=== PATIENT | male | born 1995 | race Caucasian/White ===

== ENCOUNTER 2017-05-21 08:05 | Day surgery (SDC) | payer OTHER ==
[~2017-05-21 08:05] MED LIST: Buffered Lidocaine 0.9% SYRIN* 5 ML/SYR SYRINGE INTRADERM ONE; Sodium Citrate/Citric Acid* 15 ML UDC PO ONE
[2017-05-21] MEDS ORDERED: Sodium Citrate/Citric Acid* 15 ML UDC ONE (08:19)
[2017-05-21] MEDS ORDERED: ceFAZolin 2 GM PREMIX (*) 50 ML IVPB ONE (08:19)
[2017-05-21] MEDS ORDERED: Buffered Lidocaine 0.9% SYRIN* 5 ML/SYR SYRINGE ONE (08:19)
[2017-05-21] MEDS ORDERED: EPINEPHrine AMP 1 MG/ML ONE (09:36)
[2017-05-21] MEDS ORDERED: Lidocaine 1.5% EPI 1:200,000* 30 ML SDV ONE (09:36)
[2017-05-21] MEDS ORDERED: fentaNYL* 50 MCG/ML 2 ML VIAL (100 MCG VIAL) ONE ×2 (09:47→11:43)
[2017-05-21] MEDS ORDERED: Midazolam* 1 MG/ML 2 ML VIAL (2 MG) ONE (09:47)
[2017-05-21] MEDS ORDERED: Lidocaine 2% PF * 5 ML VIAL ONE (09:48)
[2017-05-21] MEDS ORDERED: Propofol* 10 MG/ML 20 ML BTL IV PUSH ONE (09:48)
[2017-05-21] MEDS ORDERED: Ketorolac INJ* 30 MG/ML 1 ML VIAL ONE (09:48)
[2017-05-21] MEDS ORDERED: Ondansetron INJ* 2 MG/ML VIAL IV PRN (11:57)
[2017-05-21] MEDS ORDERED: fentaNYL* 50 MCG/ML 2 ML VIAL (100 MCG VIAL) IV PRN (11:57)
[2017-05-21] MEDS ORDERED: oxyCODONE/Acetamin 5/325 MG* TAB ONE (12:53)
[2017-05-21 13:28] VITALS: BP 148/76
--- NOTE | 2017-05-22 09:21 | OP ---
OPERATIVE REPORT: DATE OF OPERATION: 05/21/17 DATE OF : 89 SURGEON: Teo Pradhan MD INTEGRATION SOFTWARE DEVELOPER: ANN MARIE Trujillo A physician trading assistant was required for the duration of the procedure for knee manipulation and instr umentation. ANESTHESIOLOGIST: Gaudencio Carlton MD ANESTHESIA: General anesthesia, local anesthesia, 30 cc of lidocaine 1.5% with epinephrine. PRE-OP DIAGNOSIS: Left knee lateral meniscus tear. POST-OP DIAGNOSES: 1. Left knee lateral meniscus tear. 2. Left knee medial plica. OPERATIVE PROCEDURE: 1. Left knee arthroscopic partial lateral meniscectomy. 2. Left knee arthroscopic synovectomy. 3. Left knee arthroscopic removal of medial plica. ANTIBIOTICS: 2 g Ancef IV. IV FLUIDS: 700 cc crystalloid. TOURNIQUET TIME: 73 minutes at 300 mmHg. COMPLICATIONS: None. ESTIMATED BLOOD LOSS: None. SPECIMENS: None. IMPLANTS: None. 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 The patient responded insufficiency to very limited courses of nonoperative management. He opted fo r operative management as detailed up in my history and physical. I discussed benefits, risks, and potential complications of surgery. Risks and potential complicati ons included bleeding, infection, nerve or blood vessel injury, meniscus retear, knee arthritis, kne e pain. DESCRIPTION OF PROCEDURE: Preoperative written consent was obtained. Operative extremity was marke d in the preoperative holding. Patient was taken back to the operating room and placed supine on th e operating table. Patient was sedated and intubated. A tourniquet was placed around the left prox imal thigh. The left distal thigh was placed into a circumferential thigh michel. The bed was elev ated and the foot of bed was dropped. The left lower extremity was prepped with ChloraPrep. The le ft lower extremity was draped. A surgical time-out was performed. An Esmarch was applied and the t ourniquet was elevated to 300 mmHg. An anterolateral knee arthroscopy portal was established using standard technique. I made this purposefully a little bit superior anticipating wanting to look cedrick n on the anterior horn and anterior body of the lateral meniscus. Diagnostic arthroscopic was comme nced. There were no articular cartilage lesions in the patellofemoral compartment, but significant synovitis into it. I next visualized a medial plica. I next moved down to the medial compartment. No meniscus or articular cartilage lesions were appreciated in the medial compartment. Intracondyla r notch showed intact ACL. There was some synovitis about the anterior knee. I next moved to the l ateral compartment. There was some synovitis anterior to the anterior horn of the lateral meniscus. There was also a clear radial tear about the body of the lateral meniscus. With the knee in a varus and figure-4 position, I established an excellent anteromedial portal enabl ing me to perform work on the body and anterior horn of the lateral meniscus. I did so under visual ization. I entered an arthroscopic shaver from anteromedial and debrided some of the meniscal tear. I alternated my viewing portal between anterolateral and anteromedial constantly as I found that t he radial tear involved much of the anterior horn and best visualization was obtained from medial. At some point, I debrided the medial plica both as they can be pathologic and it was interfering wit h instrumentation. I debrided the meniscus tear back to a stable rim using arthroscopic shaver as well as basket biters . The initial radial partial thickness tear was about the junction between the anterior horn and the b maci of the lateral meniscus. As I debrided that tear, it became obvious that there was another tear , radial, partial thickness, in more of the anterior horn of the meniscus undersurface. This had be en visualized on MRI. This was somewhat hard to reach even with my excellent anteromedial portal. Ho wever, I was able to come up while constantly switching between the medial and lateral compartments, visualized it well and debrided back to a stable rim. I also debrided some anterior synovitis about the knee. When I was done in the lateral compartment and taken final photos and moved to patellofemoral compartment, where I debrided some additional syn ovitic tissue that was developing into that compartment. I removed instruments and fluid from the knee. We closed the skin incisions with [id number] st itches using nylon and 4-0 suture. I then injected 30 cc of lidocaine 1.5% with epinephrine into th e subcutaneous tissue surrounding all 3 skin incision portal sites. It should be noted that I also created a third portal, an ancillary anteromedial portal that I used to instrument in the patellofemoral compartment. Xeroform was applied followed by 4x4s and sterile Webril to the knee. Kaiser bandage from foot to prox imal thigh. Cooling unit. The patient was extubated and awakened. DISPOSITION: The patient will have Percocet for pain control and aspirin b.i.d. x2 weeks for DVT pr ophylaxis. Patient will do physical therapy tomorrow. Weightbearing as tolerated, crutches as neede d, and will follow up with me in 10 to 14 days postoperatively if not sooner. We have already discu ssed that the patient will stay out of the athletic training room for the first 2 weeks postoperativ heather. [id number]/[facility] #: [id number]
== END 2017-05-21 13:19 | disposition home or self-care (01) ==
LOC: OR 08:05
PROVIDERS: ATTEND Orthopaedic Surgery
DX: S83.282A Other tear of lateral meniscus, current injury, left knee, initial encounter (principal); X50.9XXA Other and unspecified overexertion or strenuous movements or postures, initial encounter; M67.52 Plica syndrome, left knee
CPT/HCPCS: A9270-GY; J0171; J0690; J1885; J2250; J2704; J3010